=== PATIENT | female | born 1985 | race Caucasian/White ===

== ENCOUNTER → 2016-07-29 | Outpatient (CLI) | payer OTHER ==
--- NOTE | 2016-07-29 12:39 | MR ---
EXAMINATION TYPE: MR knee RT wo con DATE OF EXAM: 07/29/2016 12:22 PM COMPARISON: NONE HISTORY: Osteoarthritis of right knee TECHNIQUE: Multiplanar, multisequence imaging of the right knee is performed without IV contrast. FINDINGS: MEDIAL MENISCUS: There is a tear involving the posterior horn medial meniscus. LATERAL MENISCUS: Anterior and posterior horns are intact without tear. CRUCIATE LIGAMENTS: Intrasubstance signal within the ACL suggestive of strain or partial tear.. COLLATERAL LIGAMENTS: The medial collateral ligament and lateral collateral ligament complex are inta ct and unremarkable. EXTENSOR MECHANISM: Visualized quadriceps and patellar tendons are intact. EFFUSION: No significant suprapatellar joint effusion. POPLITEAL CYST: No popliteal/rievra cyst. TRICOMPARTMENT SPACES: Joint spaces preserved CARTILAGE: Cartilage preserved BONE MARROW SIGNAL: No focal abnormal marrow signal is appreciated. OTHER: No additional significant abnormality is appreciated. IMPRESSION: 1. Posterior horn medial meniscal tear 2. ACL strain
== END | disposition home or self-care (01) ==
LOC: RADMRIMAIN 11:11
PROVIDERS: ATTEND Family Medicine
DX: S83.241A Other tear of medial meniscus, current injury, right knee, initial encounter (principal); S83.521A Sprain of posterior cruciate ligament of right knee, initial encounter; X58.XXXA Exposure to other specified factors, initial encounter; M17.0 Bilateral primary osteoarthritis of knee

== ENCOUNTER → 2017-01-06 | Outpatient (CLI) | payer OTHER ==
--- NOTE | 2017-01-06 15:59 | MR ---
EXAMINATION TYPE: MR brain wo/w con DATE OF EXAM: 01/06/2017 COMPARISON: NONE HISTORY: Pt. States she has a Feeling of Facial Droop TECHNIQUE: Multiplanar, multisequence images of the brain and brainstem is performed without and with IV contras t, utilizing 12 mL intravenous MultiHance . FINDINGS: Diffusion weighted images demonstrate no evidence of a recent infarct or other diffusion ab normality. There is no extra-axial fluid collection or significant white matter signal abnormality. The ventricular system and cisternal spaces are normal in size and appearance. The brain volume is age appropriate. Midline structures demonstrate normal morphology. The craniocervical junction appears within normal limits. Post contrast images demonstrate no abnormal enhancement. There is some prominence of what m ay be a lenticular striate artery on the right as compared to the left. The dural venous sinuses appe ar patent. The visualized sinuses are clear and the globes are intact. IMPRESSION: No acute abnormality. 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
== END | disposition home or self-care (01) ==
LOC: RADMRIMAIN 14:44
PROVIDERS: ATTEND Family Medicine
DX: G51.9 Disorder of facial nerve, unspecified (principal); R29.810 Facial weakness
CPT/HCPCS: 70553; A9577

== ENCOUNTER → 2017-01-20 | Outpatient (CLI) | payer OTHER ==
--- NOTE | 2017-01-20 21:00 | MR ---
EXAMINATION TYPE: MR angio head wo con DATE OF EXAM: 01/20/2017 COMPARISON: MRI brain 01/06/2017 HISTORY: Congenital arterial variant TECHNIQUE: Utilizing 3-D [id number] intracranial MRA of the jamul of [place] was performed. FINDINGS: The vertebrobasilar and carotid systems are patent. There is no sizable aneurysm or vascular malform ation. Visualized arterial anatomy is within normal limits. IMPRESSION: 1. No evidence of vascular malformation or sizable aneurysm.
== END | disposition home or self-care (01) ==
LOC: RADMRIMAIN 20:09
PROVIDERS: ATTEND Family Medicine
DX: Q28.8 Other specified congenital malformations of circulatory system (principal)
CPT/HCPCS: 70544

== ENCOUNTER 2017-02-24 12:01 | Emergency (ER) | payer OTHER ==
[2017-02-24 12:36] VITALS: TEMP 98.3
[2017-02-24] MEDS ORDERED: LORazepam 1 MG TAB PO STA (12:54)
[2017-02-24] MEDS ORDERED: IBUPROFEN 600 MG TAB PO STA (12:54)
--- NOTE | 2017-02-24 13:19 | ED ---
General Adult HPI - General Chief complaint: Chest Pain Stated complaint: Chest Pain, Ear Pain Time Seen by Provider: 02/24/17 12:43 Source: patient, RN notes reviewed, old records reviewed Mode of arrival: wheelchair Limitations: no limitations - History of Present Illness Initial comments: This is a 31-year-old female to the ER for evaluation of multiple complaints. Patient complains of chest pain, ear pain some. Patient has recent diagnosis of hepatitis. Patient states that this was found during routine lab testing, unsure of reason for why she has hepatitis. Patient denies any fevers currently. Denies abdominal pain. Patient states her symptoms came on when they were coming to the hospital today for her boyfriends tooth pain and she began to have chest pain and ear pain. Again no fevers. No difficulty swallowing, no shortness of breath, occasional cough patient does admit to being an every day smoker. No recent travel history, no other known sick contacts - Related Data Home Medications Medication Instructions Recorded Confirmed Vit No.124/Iron/Folic 1 each PO DAILY 10/06/14 10/20/14 [ Vitamin Tablet] Allergies Allergy/AdvReac Type Severity Reaction Status Date / Time No Known Allergies Allergy Verified 02/24/17 12:36 Review of Systems ROS Statement: Those systems with pertinent positive or pertinent negative responses have been documented in the HPI. ROS Other: All systems not noted in ROS Statement are negative. Past Medical History Past Medical History: No Reported History History of Any Multi-Drug Resistant Organisms: None Reported Past Surgical History: No Surgical Hx Reported Past Anesthesia/Blood Transfusion Reactions: No Reported Reaction Past Psychological History: No Psychological Hx Reported Smoking Status: Current every day smoker Past Alcohol Use History: Occasional Past Drug Use History: None Reported - Past Family History Father Family Medical History: Diabetes Mellitus General Exam Limitations: no limitations General appearance: alert, in no apparent distress Head exam: Present: atraumatic, normocephalic, normal inspection Eye exam: Present: normal appearance, PERRL, EOMI. Absent: scleral icterus, conjunctival injection, periorbital swelling ENT exam: Present: normal exam, mucous membranes moist Neck exam: Present: normal inspection. Absent: tenderness, meningismus, lymphadenopathy Respiratory exam: Present: normal lung sounds bilaterally. Absent: respiratory distress, wheezes, rales, rhonchi, stridor Cardiovascular Exam: Present: regular rate, normal rhythm, normal heart sounds. Absent: systolic murmur, diastolic murmur, rubs, gallop, clicks GI/Abdominal exam: Present: soft, normal bowel sounds. Absent: distended, tenderness, guarding, rebound, rigid Extremities exam: Present: normal inspection, full ROM, normal capillary refill. Absent: tenderness, pedal edema, joint swelling, calf tenderness Back exam: Present: normal inspection Neurological exam: Present: alert, oriented X3, CN II-XII intact Psychiatric exam: Present: normal affect, normal mood Skin exam: Present: warm, dry, intact, normal color. Absent: rash Course Vital Signs 02/24/17 12:33 Temperature 98.3 F Pulse Rate 112 H Respiratory 16 Rate Blood Pressure 121/80 O2 Sat by Pulse 98 Oximetry - Reevaluation(s) Reevaluation #1: 02/24/17 13:17 Patient has improvement in symptoms, no acute distress Medical Decision Making - Medical Decision Making 31 female to ER for evaluation regarding chest pain and ear pain. Upper respiratory infection, will treat with antibiotics, patient's symptoms are improved at this time and can be discharged home - Radiology Data Radiology results: report reviewed (Chest x-ray is negative for acute disease), image reviewed Disposition Clinical Impression: Upper respiratory disease, Atypical chest pain, Anxiety Disposition: HOME SELF-CARE Condition: Good Instructions: Upper Respiratory Infection (ED) Referrals: Canelo Rodriguez DO [Primary Care Provider] - 1-2 days
--- NOTE | 2017-02-24 13:48 | XR ---
EXAMINATION TYPE: XR chest 2V DATE OF EXAM: 02/24/2017 COMPARISON: 11/10/2013 HISTORY: Mediastinal chest pain TECHNIQUE: Frontal and lateral views of the chest are obtained. FINDINGS: There is no focal air space opacity, pleural effusion, or pneumothorax seen. The cardiac silhouette size is within normal limits. The osseous structures are intact. IMPRESSION: No acute cardiopulmonary process.
[2017-02-24 14:07] VITALS: BP 108/67; PULSE 88; RESP 15
== END 2017-02-24 14:12 | disposition home or self-care (01) ==
LOC: EC 12:01
DX: J06.9 Acute upper respiratory infection, unspecified (principal); F41.9 Anxiety disorder, unspecified; R07.9 Chest pain, unspecified; F17.200 Nicotine dependence, unspecified, uncomplicated; Z79.899 Other long term (current) drug therapy
CPT/HCPCS: 71020; 93005; 93880; 99285

== ENCOUNTER → 2017-02-24 | Outpatient (CLI) | payer OTHER ==
--- NOTE | 2017-02-24 16:01 | US ---
EXAMINATION TYPE: US carotid duplex BILAT DATE OF EXAM: 02/24/2017 COMPARISON: NONE CLINICAL HISTORY: 31-year-old female R20.0 Right facial numbness. Right facial numbness TECHNIQUE: Carotid duplex ultrasound examination. In direct Doppler criteria was utilized. FINDINGS: EXAM MEASUREMENTS: RIGHT: Peak Systolic Velocity (PSV) cm/sec ----- Right CCA: 133.5 ----- Right ICA: 112.2 ----- Right ECA: 110.8 ICA/CCA ratio: 0.8 RIGHT: End Diastole cm/sec ----- Right CCA: 32.9 ----- Right ICA: 37.5 ----- Right ECA: 18.7 LEFT: Peak Systolic Velocity (PSV) cm/sec ----- Left CCA: 114.0 ----- Left ICA: 133.9 ----- Left ECA: 81.5 ICA/CCA ratio: 1.2 LEFT: End Diastole cm/sec ----- Left CCA: 33.3 ----- Left ICA: 58.0 ----- Left ECA: 13.9 VERTEBRALS (direction of flow): Right Vertebral: Antegrade Left Vertebral: Antegrade Rhythm: Normal IMPRESSION: Velocities within the left ICA are slightly elevated though the ICA/CCA ratio remains normal. These v elocity changes could be due to turbulent flow. A mild to moderate left ICA stenosis is difficult to exclude. Criteria for Assigning % of Stenosis / Diameter reduction (Estimation based on the indirect measurements of the internal carotid artery velocities (ICA PSV). 1. Normal (no stenosis)=ICA PSV < 125 cm/s: ratio < 2.0: ICA EDV<40 cm/s. 2. Less than 50% stenosis=ICA PSV < 125 cm/s: ratio < 2.0: ICA EDV<40 cm/s. 3. 50 to 69% stenosis=ICA PSV of 125 to 230 cm/s: ration 2.0 ? 4.0: ICA EDV 40-100 cm/s. 4. Greater than 70% stenosis to near occlusion= ICA PSV > 230 cm/s: ratio > 4.0: ICA EDV > 100 cm/s. 5. Near occlusion= ICA PSV velocities may be low or undetectable: variable ratio and ICA EDV. 6. Total occlusion=unable to detect flow.
== END | disposition home or self-care (01) ==
LOC: RADUSWWP 15:24
PROVIDERS: ATTEND Psychiatry & Neurology Neurology
DX: I65.29 Occlusion and stenosis of unspecified carotid artery (principal)
CPT/HCPCS: 93880

== ENCOUNTER 2017-03-01 16:03 | Emergency (ER) | payer OTHER ==
[2017-03-01 16:10] VITALS: RESP 18
--- NOTE | 2017-03-01 16:40 | ED ---
General Adult HPI - General Chief complaint: Chest Pain Stated complaint: Chest Pain Time Seen by Provider: 03/01/17 16:16 Source: patient, RN notes reviewed Mode of arrival: ambulatory Limitations: no limitations - History of Present Illness Initial comments: 31-year-old female presents to the emergency department with a chief complaint of chest pain. Patient was seen here a few days ago for chest pain and ear pain. She states she was started on amoxicillin however she started to have some stabbing chest pain today. Patient admits to mild shortness of breath. Patient states that she chronically has some tenderness to the left breast due to a fibroid tumor being removed from there she states is stabbing chest pain is different. Patient denies any nausea vomiting with this. Patient was concerned due to her continued symptoms so she thought that she should be seen. Patient denies any recent fever, chills, back pain, abdominal pain, nausea vomiting, numbness or tingling, dysuria or hematuria, constipation or diarrhea, headaches or visual changes, or any other current symptoms. - Related Data Home Medications Medication Instructions Recorded Confirmed Amoxicillin 500 mg PO TID 03/01/17 03/01/17 Allergies Allergy/AdvReac Type Severity Reaction Status Date / Time No Known Allergies Allergy Verified 03/01/17 16:30 Review of Systems ROS Statement: Those systems with pertinent positive or pertinent negative responses have been documented in the HPI. ROS Other: All systems not noted in ROS Statement are negative. Past Medical History Past Medical History: No Reported History History of Any Multi-Drug Resistant Organisms: None Reported Past Surgical History: Orthopedic Surgery Past Anesthesia/Blood Transfusion Reactions: No Reported Reaction Past Psychological History: No Psychological Hx Reported Smoking Status: Current every day smoker Past Alcohol Use History: Occasional Past Drug Use History: None Reported - Past Family History Father Family Medical History: Diabetes Mellitus General Exam - General Exam Comments Initial Comments: General: The patient is awake and alert, in no distress, and does not appear acutely ill. Eye: Pupils are equal, round and reactive to light, extra-ocular movements are intact; there is normal conjunctiva bilaterally. No signs of icterus. Ears, nose, mouth and throat: There are moist mucous membranes and no oral lesions. Neck: The neck is supple, there is no tenderness. Cardiovascular: There is a regular rate and rhythm. No murmur, rub or gallop is appreciated. Respiratory: Lungs are clear to auscultation, respirations are non-labored, breath sounds are equal. No wheezes, stridor, rales, or rhonchi. Gastrointestinal: Soft, non-distended, non-tender abdomen without masses or organomegaly noted. There is no rebound or guarding present. No CVA tenderness. Bowel sounds are unremarkable. Back: There is no tenderness to palpation in the midline. There is no obvious deformity. No rashes noted. Musculoskeletal: Normal ROM, no tenderness, There is no pedal edema. There is no calf tenderness or swelling. Sensation intact. Pulses equal bilaterally 2+. Neurological: CN II-XII intact, There are no obvious motor or sensory deficits. Coordination appears grossly intact. Speech is normal. Skin: Skin is warm and dry and no rashes or lesions are noted. Psychiatric: Cooperative, appropriate mood & affect, normal judgment. Limitations: no limitations Course Vital Signs 03/01/17 16:07 Temperature 98.8 F Pulse Rate 110 H Respiratory 18 Rate Blood Pressure 109/81 O2 Sat by Pulse 97 Oximetry EKG Findings - EKG Comments: EKG Findings:: normal sinus rhythm 79 bpm, normal axis, no atopy, no S-T depressions or elevations, Medical Decision Making - Medical Decision Making 31-year-old female presents for chest pain shortness of breath. This is been going on since .at this time patient's d-dimer was elevated CT anginal is negative however. EKG is reviewed. At this time we discussed its most likely a pleuritic type chest pain. We discussed follow-up return parameters all the questions. She stated she understood and she is to give this plan. All cushions have any answered. She'll be discharged. - Lab Data Result diagrams: 03/01/17 16:47 03/01/17 16:47 Lab Results 03/01/17 03/01/17 03/01/17 Range/Units 16:47 16:47 16:47 WBC 7.0 (3.8-10.6) k/uL RBC 4.14 (3.80-5.40) m/uL Hgb 13.8 (11.4-16.0) gm/dL Hct 40.9 (34.0-46.0) % MCV 98.9 (80.0-100.0) fL MCH 33.3 (25.0-35.0) pg MCHC 33.6 (31.0-37.0) g/dL RDW 12.1 (11.5-15.5) % Plt Count 246 (150-450) k/uL Neutrophils % 59 % Lymphocytes % 32 % Monocytes % 5 % Eosinophils % 2 % Basophils % 1 % Neutrophils # 4.1 (1.3-7.7) k/uL Lymphocytes # 2.2 (1.0-4.8) k/uL Monocytes # 0.3 (0-1.0) k/uL Eosinophils # 0.2 (0-0.7) k/uL Basophils # 0.0 (0-0.2) k/uL D-Dimer 0.73 H (<0.60) mg/L FEU Sodium 140 (137-145) mmol/L Potassium 4.1 (3.5-5.1) mmol/L Chloride 107 (98-107) mmol/L Carbon Dioxide 22 (22-30) mmol/L Anion Gap 11 mmol/L BUN 7 (7-17) mg/dL Creatinine 0.64 (0.52-1.04) mg/dL Est GFR (MDRD) Af Amer >60 (>60 ml/min/1.73 sqM) Est GFR (MDRD) Non-Af >60 (>60 ml/min/1.73 sqM) Glucose 94 (74-99) mg/dL Calcium 9.6 (8.4-10.2) mg/dL Total Bilirubin 0.6 (0.2-1.3) mg/dL AST 14 (14-36) U/L ALT 23 (9-52) U/L Alkaline Phosphatase 49 (38-126) U/L Troponin I (0.000-0.034) ng/mL Total Protein 7.1 (6.3-8.2) g/dL Albumin 4.3 (3.5-5.0) g/dL 03/01/17 Range/Units 16:47 WBC (3.8-10.6) k/uL RBC (3.80-5.40) m/uL Hgb (11.4-16.0) gm/dL Hct (34.0-46.0) % MCV (80.0-100.0) fL MCH (25.0-35.0) pg MCHC (31.0-37.0) g/dL RDW (11.5-15.5) % Plt Count (150-450) k/uL Neutrophils % % Lymphocytes % % Monocytes % % Eosinophils % % Basophils % % Neutrophils # (1.3-7.7) k/uL Lymphocytes # (1.0-4.8) k/uL Monocytes # (0-1.0) k/uL Eosinophils # (0-0.7) k/uL Basophils # (0-0.2) k/uL D-Dimer (<0.60) mg/L FEU Sodium (137-145) mmol/L Potassium (3.5-5.1) mmol/L Chloride (98-107) mmol/L Carbon Dioxide (22-30) mmol/L Anion Gap mmol/L BUN (7-17) mg/dL Creatinine (0.52-1.04) mg/dL Est GFR (MDRD) Af Amer (>60 ml/min/1.73 sqM) Est GFR (MDRD) Non-Af (>60 ml/min/1.73 sqM) Glucose (74-99) mg/dL Calcium (8.4-10.2) mg/dL Total Bilirubin (0.2-1.3) mg/dL AST (14-36) U/L ALT (9-52) U/L Alkaline Phosphatase (38-126) U/L Troponin I <0.012 (0.000-0.034) ng/mL Total Protein (6.3-8.2) g/dL Albumin (3.5-5.0) g/dL - Radiology Data Radiology results: report reviewed, image reviewed Disposition Clinical Impression: Pleuritic chest pain Disposition: HOME SELF-CARE Condition: Stable Instructions: Pleurisy (ED) Additional Instructions: Please use medication as discussed. Please follow up with family doctor if symptoms have not improved over the next two days. Please return to the emergency room if your symptoms increase or worsen or for any other concerns. Referrals: Canelo Rodriguez DO [Primary Care Provider] - 1-2 days Time of Disposition: 17:57
--- NOTE | 2017-03-01 16:48 | XR ---
EXAMINATION TYPE: XR chest 2V DATE OF EXAM: 03/01/2017 COMPARISON: 02/24/2017 HISTORY: Chest pain TECHNIQUE: Frontal and lateral views of the chest are obtained. FINDINGS: Heart and mediastinum are normal. Lungs are clear. Diaphragm is normal. There are chest le ads. Bony thorax appears normal. IMPRESSION: Normal chest. No change.
[2017-03-01 16:57] LABS: Basophils % (A) 1 %; CHCM 33.5; Eosinophils # (A) 0.2 k/uL (0-0.7); Eosinophils % (A) 2 %; HCT 40.9 % (34.0-46.0); HDW 2.19; HGB 13.8 gm/dL (11.4-16.0); Luc # (Auto) 0.12; Luc % (Auto) 2; Lymphocytes # (A) 2.2 k/uL (1.0-4.8); Lymphocytes % (A) 32 %; MCH 33.3 pg (25.0-35.0); MCHC 33.6 g/dL (31.0-37.0); MCV 98.9 fL (80.0-100.0); Mean Platelet Volume 7.2; Monocytes # (A) 0.3 k/uL (0-1.0); Monocytes % (A) 5 %; Neutrophils # (A) 4.1 k/uL (1.3-7.7); Neutrophils % (A) 59 %; RBC 4.14 m/uL (3.80-5.40); RDW 12.1 % (11.5-15.5); WBC (Perox) 6.67
[2017-03-01 17:04] LABS: ALT 23 U/L (9-52); AST 14 U/L (14-36); Alkaline Phosphatase 49 U/L (38-126); Anion Gap 11 mmol/L; Blood Urea Nitrogen 7 mg/dL (7-17); Calcium 9.6 mg/dL (8.4-10.2); Carbon Dioxide 22 mmol/L (22-30); Chloride 107 mmol/L (98-107); Glucose 94 mg/dL (74-99); Non-African American GFR(MDRD) >60 (>60 ml/min/1.73 sqM); Potassium 4.1 mmol/L (3.5-5.1); Sodium 140 mmol/L (137-145); Total Bilirubin 0.6 mg/dL (0.2-1.3); Total Protein 7.1 g/dL (6.3-8.2)
[2017-03-01] MEDS ORDERED: RX INFO: IV CONTRAST WAS GIVEN 1 EACH MISC MISCELLANE PRN (17:09)
--- NOTE | 2017-03-01 17:37 | CT ---
EXAMINATION TYPE: CT chest angio for PE DATE OF EXAM: 03/01/2017 COMPARISON: NONE HISTORY: Chest pain and SOB. CT DLP: 154.6 mGycm Automated exposure control for dose reduction was used. CONTRAST: CT Chest for pulmonary embolism performed with with IV Contrast, patient injected with 70 mL of Omnip aque 350. There are 3-D post processed images. FINDINGS: The lungs are clear of consolidation. There is no evidence of a pulmonary mass. There is no pleural e ffusion. There is minimal subsegmental atelectasis at the posterior lung bases. Heart size is normal. There is no pericardial effusion. I see no filling defects in the pulmonary arteries. There is no sign of aortic aneurysm or dissection . There is no mediastinal adenopathy. There are no hilar masses. The bony thorax is intact. IMPRESSION: Negative CT angiogram of the chest. No evidence of pulmonary embolism.
[2017-03-01 18:14] VITALS: BP 120/66; PULSE 84; TEMP 98
== END 2017-03-01 18:13 | disposition home or self-care (01) ==
LOC: EC 16:03
DX: R07.81 Pleurodynia (principal); R79.89 Other specified abnormal findings of blood chemistry; R06.02 Shortness of breath; F17.200 Nicotine dependence, unspecified, uncomplicated
CPT/HCPCS: 99285 ×2; 36415; 93005; 85379; 80053; 84484; 85025; 71020; 71275; Q9967

== ENCOUNTER 2017-05-26 14:17 | Emergency (ER) | payer OTHER ==
[2017-05-26] MEDS ORDERED: methylPREDNISolone SOD SUCCI 125 MG/2 ML VIAL IM STA (14:33)
--- NOTE | 2017-05-26 14:36 | ED ---
General Adult HPI - General Chief complaint: ENT Stated complaint: Rash/Face Time Seen by Provider: 05/26/17 14:23 Source: patient, RN notes reviewed Mode of arrival: ambulatory Limitations: no limitations - History of Present Illness Initial comments: Patient is a 31-year-old female who presents emergency room today with chief complaint of sore throat. States it started this morning. Also admits to a red feliz to the right cheek. States that she notices this morning when she looked in the ear. She describes it as a burning sensation to the cheek area. She denies any other complaints or associated symptoms. Denies any medications. Does not that she was out of wind yesterday. Patient denies any recent fever, chills, shortness of breath, chest pain, back pain, abdominal pain , nausea or vomiting, numbness or tingling, dysuria or hematuria, constipation or diarrhea, headaches or visual changes, or any other complaints. - Related Data Home Medications Medication Instructions Recorded Confirmed Amoxicillin 500 mg PO TID 03/01/17 03/01/17 Previous Rx's Medication Instructions Recorded Bacitracin Oint 28.4 gm TOPICAL BID #1 tube 05/26/17 predniSONE 50 mg PO DAILY #3 tab 05/26/17 Allergies Allergy/AdvReac Type Severity Reaction Status Date / Time No Known Allergies Allergy Verified 05/26/17 14:22 Review of Systems ROS Statement: Those systems with pertinent positive or pertinent negative responses have been documented in the HPI. ROS Other: All systems not noted in ROS Statement are negative. Past Medical History Past Medical History: No Reported History History of Any Multi-Drug Resistant Organisms: None Reported Past Surgical History: Orthopedic Surgery Past Anesthesia/Blood Transfusion Reactions: No Reported Reaction Past Psychological History: No Psychological Hx Reported Smoking Status: Current every day smoker Past Alcohol Use History: Occasional Past Drug Use History: None Reported - Past Family History Father Family Medical History: Diabetes Mellitus General Exam - General Exam Comments Initial Comments: General: The patient is awake and alert, in no distress, and does not appear acutely ill. Eye: Pupils are equal, round and reactive to light, extra-ocular movements are intact. No nystagmus. There is normal conjunctiva bilaterally. No signs of icterus. Ears, nose, mouth and throat: There are moist mucous membranes and no oral lesions. increased redness or erythema to the posterior pharynx. Uvula midline. Patient swallows without difficult. No exudate. Tolerated oral secretions. Neck: The neck is supple, there is no tenderness or JVD. Cardiovascular: There is a regular rate and rhythm. No murmur, rub or gallop is appreciated. Respiratory: Lungs are clear to auscultation, respirations are non-labored, breath sounds are equal. No wheezes, stridor, rales, or rhonchi. Musculoskeletal: Normal ROM, no tenderness. Strength 5/5. Sensation intact. Pulses equal bilaterally 2+. Neurological: A&O x 3. CN II-XII intact, There are no obvious motor or sensory deficits. Coordination appears grossly intact. Speech is normal. Skin: she does have an area of redness to the right cheek that appears consistent with an abrasion. Superficial. Local redness surrounding. Measures approximately 2 cm x 1 cm. Psychiatric: Cooperative, appropriate mood & affect, normal judgment. Limitations: no limitations Course Vital Signs 05/26/17 14:20 Temperature 97.4 F L Pulse Rate 80 Respiratory 16 Rate Blood Pressure 120/68 O2 Sat by Pulse 100 Oximetry Medical Decision Making - Medical Decision Making patient's strep test is negative. Patient given a shot of antibiotics. Patient will be continued on antibiotics for the next 2 days for comfort for her symptoms of a sore throat. Patient also given topical antibiotic use for the abrasion to her right cheek and advised to return if symptoms increase worsen. She states understanding and is in agreement. - Lab Data Lab Results 05/26/17 Range/Units 14:32 Group A Strep Rapid Negative (Negative) Disposition Clinical Impression: Acute pharyngitis, Abrasion Disposition: HOME SELF-CARE Condition: Good Instructions: Pharyngitis (ED) Additional Instructions: Please use medication as discussed. Please follow-up with family doctor in the next 2 days of symptoms have not improved. Please return to emergency room if the symptoms increase or worsen or for any other concerns. Prescriptions: Bacitracin Oint 28.4 gm TOPICAL BID #1 tube predniSONE 50 mg PO DAILY #3 tab Referrals: Canelo Rodriguez DO [Primary Care Provider] - 1-2 days Time of Disposition: 14:55
[2017-05-26 16:42] VITALS: BP 120/68; PULSE 80; RESP 16; TEMP 97.4
== END 2017-05-26 15:08 | disposition home or self-care (01) ==
LOC: EC 14:17
DX: S00.81XA Abrasion of other part of head, initial encounter (principal); J02.9 Acute pharyngitis, unspecified; F17.200 Nicotine dependence, unspecified, uncomplicated; X58.XXXA Exposure to other specified factors, initial encounter
CPT/HCPCS: 87081; 87430; 99283; 96372; J2930

== ENCOUNTER → 2017-12-15 | Outpatient (CLI) | payer OTHER ==
--- NOTE | 2017-12-16 11:14 | CT ---
EXAMINATION TYPE: CT abdomen pelvis w con DATE OF EXAM: 12/15/2017 COMPARISON: None INDICATION: Abdomen pain DLP: 370.6 mGycm, Automated exposure control for dose reduction was used. CONTRAST: 100 mL of Isovue 300. Study performed without Oral Contrast TECHNIQUE: Axial images were obtained from above the diaphragm to the pubic rami in the axial plane a t 5 mm thick sections. Reconstructed images are reviewed on the computer in the coronal plane. FINDINGS: Limited CT sections are obtained the lung bases. The lung bases are clear. CT ABDOMEN: Liver: Normal Spleen: Normal Pancreas: Normal Adrenal glands: The adrenal glands are normal. Gallbladder: Normal Kidneys: No masses are evident. No hydronephrosis is present. No cysts are present. Delayed images were obtained through the kidneys, which remain unremarkable. Aorta: Normal Inferior vena cava: Normal. CT PELVIS: Loops of bowel within the abdomen and pelvis are normal. There are loops of bowel which are incom pletely distended or lack oral contrast limiting their evaluation. Appendix: Normal as visualized. Urinary bladder: Normal. Genitourinary structures: Uterus appears normal. There is a 1.9 x 2.9 cm right ovarian cyst Osseous structures: No suspicious lytic or sclerotic lesions. IMPRESSIONS: 1. Right ovarian cyst
== END | disposition home or self-care (01) ==
LOC: RADCTMAIN 14:28
PROVIDERS: ATTEND Family Medicine
DX: N83.201 Unspecified ovarian cyst, right side (principal)
CPT/HCPCS: 74177; Q9967

== ENCOUNTER → 2018-01-05 | Outpatient (CLI) | payer OTHER ==
--- NOTE | 2018-01-05 13:09 | US ---
EXAMINATION TYPE: US gallbladder DATE OF EXAM: 01/05/2018 COMPARISON: CT 2018 CLINICAL HISTORY: K81.1 cholecystitis. Intermittent abdomen pain x 1 month EXAM MEASUREMENTS: Liver Length: 14.0 cm Gallbladder Wall: 0.2 cm CBD: 0.3 cm Right Kidney: 9.4 x 4.2 x 4.8 cm Pancreas: wnl Liver: wnl Gallbladder: multiple echogenic foci appear to be within anterior wall with ring down artifact, larg est = 0.3cm, likely adenomyomatosis Evidence for sonographic Alberts's sign: no CBD: wnl Right Kidney: visualized portions wnl, inferior pole limited by overlying bowel gas IMPRESSION: Findings most compatible with adenomyomatosis. No findings of acute cholecystitis.
--- NOTE | 2018-01-05 15:35 | NM ---
EXAMINATION TYPE: NM hepatobiliary w CCK DATE OF EXAM: 01/05/2018 COMPARISON: NONE HISTORY: Pain TECHNIQUE: After the intravenous administration of 5.09 mCi Tc 99m Mebrofenin hepatobiliary scintigra phy is performed. Immediate images post injection. FINDINGS: There is satisfactory initial accumulation of tracer by the liver. The gallbladder is visualized wit hin 38 minutes. The small bowel activity is noted within 20 minutes. At one hour CCK was administer ed, patient was injected with 1.2 mcg of Kinevac, gallbladder ejection fraction is estimated at 12%. IMPRESSION: Diminished gallbladder ejection fraction of 12% compatible with chronic cholecystitis and /or biliary dyskinesia.
== END | disposition home or self-care (01) ==
LOC: RADUSMAIN 12:22
PROVIDERS: ATTEND Surgery
DX: R93.2 Abnormal findings on diagnostic imaging of liver and biliary tract (principal)
CPT/HCPCS: 76705; 78227; A9537; J2805

== ENCOUNTER 2018-02-01 06:51 | Day surgery (SDC) | payer OTHER ==
[2018-01-26 15:42] VITALS: BMI 24.7
[~2018-02-01 06:51] MED LIST: HEPARIN SODIUM,PORCINE 5,000 UNIT/ML 1 ML VIAL SQ ONE; HYDROmorphone 0.5 MG/0.5 ML SYRINGE IVP PRN; LACTATED RINGERS 1,000 ML IV SCH; SCOPOLAMINE 1.5MG/72HR PATCH TRANSDERM ONE; ceFAZolin IN SWFI 2 GM/20 ML SYRINGE IVP ONE; fentaNYL (PF) 50 MCG/ML 2 ML AMP IV PRN
[2018-02-01] MEDS ORDERED: LIDOCAINE 1% 20 ML VIAL (10MG/ML) FOR IV START INTRADERMA ONE (07:32)
[2018-02-01] MEDS ORDERED: ONDANSETRON 4 MG/2 ML VIAL IVP ONE (07:36)
[2018-02-01] MEDS ORDERED: DEXAMETHASONE SOD PHOS (MDV) 100 MG/10 ML VIAL IVP ONE (07:36)
--- NOTE | 2018-02-01 07:54 | P.GSHP ---
History of Present Illness H&P Date: 02/01/18 Chief Complaint: Right upper quadrant pain This is a 32-year-old female who presents today for laparoscopic cholestatic. Patient's had complete the right upper quadrant pain. Her recent HIDA scan shows diminished ejection fraction consistent with chronic cholecystitis. Past Medical History Past Medical History: Liver Disease, Osteoarthritis (OA) Additional Past Medical History / Comment(s): Hepatitis C. History of Any Multi-Drug Resistant Organisms: None Reported Past Surgical History: Breast Surgery, Orthopedic Surgery Additional Past Surgical History / Comment(s): Right knee surgery, fibroid tumor removed from left breast. Past Anesthesia/Blood Transfusion Reactions: No Reported Reaction Past Psychological History: No Psychological Hx Reported Smoking Status: Current every day smoker Past Alcohol Use History: Rare Additional Past Alcohol Use History / Comment(s): Has been smoking for 18 yrs, 6 -7 cigarettes per day. Past Drug Use History: Marijuana Additional Drug Use History / Comment(s): Uses marijuana 1-2X weekly. Patient aware not to use for 24 hrs prior to procedure. - Past Family History Father Family Medical History: Diabetes Mellitus Medications and Allergies Home Medications Medication Instructions Recorded Confirmed Type No Known Home Medications 01/26/18 02/01/18 History Allergies Allergy/AdvReac Type Severity Reaction Status Date / Time No Known Allergies Allergy Verified 02/01/18 07:02 Surgical - Exam Vital Signs Temp Pulse Resp BP Pulse Ox 98.2 F 64 18 107/68 99 02/01/18 07:16 02/01/18 07:16 02/01/18 07:16 02/01/18 07:16 02/01/18 07:16 - General well developed, no distress - Eyes PERRL - ENT normal pinna - Neck no masses - Respiratory normal expansion - Cardiovascular Rhythm: regular - Abdomen Abdomen: soft, non tender Assessment and Plan Assessment: Chronic cholecystitis Abnormal HIDA scan We'll perform laparoscopic cholecystectomy.
[2018-02-01] MEDS ORDERED: fentaNYL (PF) 50 MCG/ML 2 ML AMP ONE ×2 (08:03)
[2018-02-01] MEDS ORDERED: GLYCOPYRROLATE 0.2 MG/ML 2 ML VIAL ONE ×2 (08:03)
[2018-02-01] MEDS ORDERED: LIDOCAINE 1% INJ 10MG/ML (20 ML MDV) ONE ×2 (08:03)
[2018-02-01] MEDS ORDERED: MIDAZOLAM 2 MG/2 ML VIAL ONE ×2 (08:03)
[2018-02-01] MEDS ORDERED: SUCCINYLCHOLINE CHLORIDE 100 MG/5 ML SYR IV ONE ×2 (08:03)
[2018-02-01] MEDS ORDERED: NEOSTIGMINE 1 MG/ML 10 ML VIAL ONE ×2 (08:03)
[2018-02-01] MEDS ORDERED: KETOROLAC 30 MG/ML 1 ML VIAL ONE ×2 (08:03)
[2018-02-01] MEDS ORDERED: ROCURONIUM BROMIDE 10 MG/ML 10 ML VIAL IV ONE ×2 (08:03)
[2018-02-01] MEDS ORDERED: PROPOFOL 10 MG/ML 20 ML VIAL IV ONE ×2 (08:03)
[2018-02-01] MEDS ORDERED: BUPIVACAIN-EPI 0.25%-1:200,000 30 ML VIAL SQ ONE (08:25)
[2018-02-01 09:03] VITALS: RESP 16; TEMP 97.4
--- NOTE | 2018-02-01 09:06 | P.OP ---
Date of Procedure: 02/01/18 Preoperative Diagnosis: Chronic cholecystitis Postoperative Diagnosis: Chronic cholecystitis Procedure(s) Performed: Laparoscopic cholecystectomy Anesthesia: HILLARY Surgeon: Conor Mendoza Estimated Blood Loss (ml): 5 Pathology: other (Gallbladder) Condition: stable Disposition: PACU Description of Procedure: The patient was placed on the operating table. The patient received a general endotracheal tube anesthesia. The patients abdomen was prepped and draped in the usual sterile fashion. Through an infraumbilical stab incision, the fascia of the anterior abdominal wall was grasped with a pair of Kochers and then the Veress needle was placed in the peritoneal cavity. Position of the Veress needle was confirmed with positive drop test. The abdomen was then insufflated. After adequate insufflation, the 10 mm trocar was placed in the peritoneal cavity. Following this the laparoscope was placed in the peritoneal cavity. The patient was placed in the head-up, right side up position and then a 5 mm trocar was placed in the right lateral and right subcostal position under direct visualization. A 8 mm trocar was placed in the epigastric position. The gallbladder was grasped in the fundus and infundibulum. Traction on the gallbladder was placed in the lateral and the cephalad positions. The triangle of Calot was visualized.. The cystic duct was bluntly dissected until the union of the cystic duct and common bile duct was seen. The cystic duct was then divided and sealed with the Harmonic scissors. A PDS Endoloop was then placed throughout the cystic duct stump. The cystic artery divided and sealed with the Harmonic scissors. The gallbladder was then removed from the liver bed using Harmonic scissors. The gallbladder was then extracted through the epigastric port site. Operative field was checked for any bleeding spots and Harmonic scissors was used to coagulate the liver bed. The abdomen was irrigated. The trocars were removed. The skin was closed using interrupted 3-0 Vicryl suture. Dermabond dressing were applied. The patient tolerated the procedure well.
[2018-02-01] MEDS ORDERED: HYDROcodone/APAP 7.5-325MG 1 EACH TAB PO ONE (10:15)
[2018-02-01 10:32] VITALS: BP 107/71; PULSE 60
== END 2018-02-01 10:50 | disposition home or self-care (01) ==
LOC: OR 06:51
PROVIDERS: ATTEND Surgery
DX: K81.1 Chronic cholecystitis (principal); K82.8 Other specified diseases of gallbladder; M19.90 Unspecified osteoarthritis, unspecified site; B19.20 Unspecified viral hepatitis C without hepatic coma; F17.210 Nicotine dependence, cigarettes, uncomplicated
CPT/HCPCS: 81025; 88304